=== PATIENT | male | born 1950 | race Caucasian/White ===

== ENCOUNTER 2018-09-10 06:02 | Inpatient (IN) ==
--- NOTE | 2018-08-13 13:21 | PAT Medication Instructions ---
Medication Instructions Date of Service August 13, 2018 Home Medications aspirin [Aspirin Low Dose] 81 mg PO QPM cinnamon bark [Cinnamon] 1,000 mg PO QAM flaxseed oil 1,000 mg PO QAM garlic 2,000 mg PO QAM ginkgo biloba 120 mg PO QAM lisinopril-hydrochlorothiazide 1 tab PO QAM loratadine 10 mg PO DAILY NEEDED multivitamin 1 tab PO QAM naproxen sodium [Aleve] 1 - 2 tab PO DAILY NEEDED turmeric 1 tab PO QAM diphenhydramine HCl [Benadryl] 25 mg PO HS NEEDED ASK your surgeon for instructions aspirin [Aspirin Low Dose] 81 mg PO QPM naproxen sodium [Aleve] 1 - 2 tab PO DAILY NEEDED STOP taking 2 weeks before surgery cinnamon bark [Cinnamon] 1,000 mg PO QAM flaxseed oil 1,000 mg PO QAM garlic 2,000 mg PO QAM ginkgo biloba 120 mg PO QAM turmeric 1 tab PO QAM DO NOT take the morning of surgery lisinopril-hydrochlorothiazide 1 tab PO QAM loratadine 10 mg PO DAILY NEEDED multivitamin 1 tab PO QAM Take morning of surgery NOTHING TO EAT OR DRINK AFTER MIDNIGHT Take evening before surgery diphenhydramine HCl [Benadryl] 25 mg PO HS NEEDED Other Notes If you have any questions please call us at [phone] or [phone] or [phone] or [phone]
--- NOTE | 2018-08-13 15:47 | Anesthesiology Consultation ---
Date of Service August 13, 2018 Assessment & Plan (1) Encounter for pre-operative examination: Chart Review Chart Review: Acceptable Risk for Surgery and Patient seen in Pre Admission Testing Consults Requested medical (Dr. Vasquez (09/03/18)) Patient was seen by PCP on 09/03/18, who stated that patient is "Medically stable to proceed with proposed surgical intervention with known associated comorbidities that currently have maximized control." Teaching & Discussion Pre-Anesthesia Teaching/Discussion Notes: Instructed NPO after midnight before surgery, except medications with 15 cc of water. Medication instructions provided according to the PAT guidelines. History Surgery Operation Date: 09/10/18 08:30 Proposed Procedures p Left Total Knee Revision - Raheem Kulkarni DO Height/Weight Height: 5 ft 8 in Weight: 96.9 kg Allergies Allergy/AdvReac Type Severity Reaction Status Date / Time No Known Allergies Allergy Verified 08/07/18 09:28 Medications Home Medications Medication Instructions Recorded Confirmed Last Taken aspirin [Aspirin Low Dose] 81 mg PO QPM 08/07/18 08/07/18 Unknown cinnamon bark [Cinnamon] 1,000 mg PO QAM 08/07/18 08/07/18 Unknown flaxseed oil 1,000 mg PO QAM 08/07/18 08/07/18 Unknown garlic 2,000 mg PO QAM 08/07/18 08/07/18 Unknown ginkgo biloba 120 mg PO QAM 08/07/18 08/07/18 Unknown lisinopril-hydrochlorothiazide 1 tab PO QAM 08/07/18 08/07/18 Unknown loratadine 10 mg PO DAILY PRN 08/07/18 08/07/18 Unknown multivitamin 1 tab PO QAM 08/07/18 08/07/18 Unknown naproxen sodium [Aleve] 1 - 2 tab PO DAILY PRN 08/07/18 08/07/18 Unknown turmeric 1 tab PO QAM 08/07/18 08/07/18 Unknown diphenhydramine HCl [Benadryl] 25 mg PO HS PRN 08/13/18 08/13/18 Unknown Past Medical History Medical History Environmental allergies GERD (gastroesophageal reflux disease) Hx of eczema Hx of skin cancer, 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 Hypertension Osteoarthritis Seasonal allergies Past Family History Family History Brother Family history of diabetes mellitus FHx: cancer Sister Family history of diabetes mellitus FHx: cancer Past Surgical History Surgical History History of arthroscopic knee surgery left Hx of colonoscopy Hx of total knee replacement left Hx of wisdom tooth extraction Past Anesthesia History No Hx of Anesthesia Complications and No Family Hx of Anesthesia Complications History of PONV No (ONLY WHEN HE SWALLOWED BLOOD DURING WISDOM TEETH SURGERY) Motion Sickness Screening History of Motion Sickness: No Social History Smoking Status: Never smoker Do You Dip or Chew Tobacco: No Hx Alcohol Use: No Hx Substance Use: No Exercise / Class Metabolic Activity II 4-5 Yardwork/Stairs/Walk up hill (Remodeling house. Able to climb FOS. Denies CP or SOB. ) Review of Systems Patient denies chest pain, shortness of breath, dyspnea on exertion, cough, wheezing, palpitations. +joint pain +acid reflux (controlled by diet) Physical Exam Vital Signs BP: 148/87 P: 116 R: 14 T: 98.7 SPO2: 96% on RA ENMT Thyromental Distance: > or= 3.5 Finger Breadths (3.5) Mallampati Class: II Partial on the top Neck normal visual inspection and trachea midline; neck extension not limited Respiratory normal respiratory effort Auscultation: lungs clear to auscultation bilaterally Cardiovascular Rate/Rhythm: regular rate and regular rhythm Heart Sounds: no murmur Vessels: no carotid bruit Psychiatric Orientation: alert and oriented x 3 Testing Electrocardiogram Date: 08/13/18 Findings: + ST @ (105) Chest X-Ray Date: 08/13/18 Findings: + NAD FINDINGS: No focal lung consolidations. The heart is normal in size. No pleural effusions. No pneumothorax. Mild smooth focal pleural thickening within the left lung apex. This is likely benign. Calcified granuloma within the right midlung zone. IMPRESSION: No acute process. Stress Test Date: 03/24/16 Type: exercise HR 140 (89% MPHR). Patient reported some dyspnea, denied chest pain. Resting ECG shows sinus rhythm and is unremarkable. Developed no ischemic ST-T abnormalities or arrhythmias with stress. HTN at rest, with stress, and during recovery. Fair exercise tolerance for the patient's age and given a prior history of knee replacement. Pulmonary Function Test Date: 03/24/16 Normal Spirometry. No significant expiratory airflow obstruction. No significant change in airflow following inhaled bronchodilator. Maximum voluntary ventilation is normal. No evidence of restrictive pulmonary process. The flow volume loop has a normal configuration. Laboratory Results 08/13/18 16:14 08/13/18 16:14 Blood Type O Positive 08/13/18 16:14 Antibody Screen NEGATIVE 08/13/18 16:14 PT 10.0 Seconds (9.0-12.0) 08/13/18 16:14 INR 1.0 (0.9-1.1) 08/13/18 16:14 APTT 26.6 Seconds (21.0-31.0) 08/13/18 16:14 Hemoglobin A1c 6.5 % (4.5-5.6) H 08/13/18 16:14
[2018-08-13 16:57] LABS: Basophils # (auto) 0.04 K/uL (0-0.2); Basophils % (auto) 0.5 %; Eosinophils # (auto) 0.25 K/uL (0-0.5); Eosinophils % (auto) 3.3 %; Hematocrit (blood only) 45.2 % (42-52); Hemoglobin 15.8 g/dL (14.0-18.0); Immature Granulocytes # (auto) 0.01 K/uL (0.00-0.02); Immature Granulocytes % (auto) 0.1 %; Lymphocytes # (auto) 2.38 K/uL (1.2-3.4); Lymphocytes % (auto) 31.3 %; Mean Corpuscular Volume 91.1 fL (80-100); Mean Platelet Volume 11.1 fL (7.4-10.4); Monocytes # (auto) 0.65 K/uL (0.11-0.59); Monocytes % (auto) 8.5 %; Neutrophils # (auto) 4.28 K/uL (1.4-6.5); Neutrophils % (auto) 56.3 %; Platelet Count 257 K/uL (130-400); RDW Coefficient of Variation 12.9 % (11.5-14.5); Red Blood Count 4.96 M/uL (4.7-6.1); White Blood Count 7.61 K/uL (4.8-10.8)
[2018-08-13 17:06] LABS: Albumin Level 4.1 gm/dl (3.4-5.0); BUN Creatinine Ratio 16.5 (10-20); Calcium 9.3 mg/dl (8.5-10.1); Creatinine Clr Calc Pharmacy 79.9 ml/min; Est GFR (African American) 86.9; Potassium 4.2 mmol/L (3.5-5.1)
[2018-08-13 17:08] LABS: Partial Thromboplastin Time 26.6 Seconds (21.0-31.0)
--- NOTE | 2018-08-13 17:14 | XRay Report ---
XR chest Pre-admission PA/Lat HISTORY: Preop. COMPARISON: None. FINDINGS: No focal lung consolidations. The heart is normal in size. No pleural effusions. No pneumot horax. Mild smooth focal pleural thickening within the left lung apex. This is likely benign. Calcifi ed granuloma within the right midlung zone. IMPRESSION: No acute process. Electronically signed by: Alexis Still M.D. 08/13/2018 5:13 PM
[2018-08-14 05:56] LABS: Estimated Average Glucose 140 mg/dl
--- NOTE | 2018-09-08 22:23 | History & Physical Report ---
Date of Service September 08, 2018 Assessment & Plan (1) Failed total knee arthroplasty: I have indicated the patient for revision left total knee replacement, possible augments, possible Crohn's. The risks, benefits and complications of surgery were explained to the patient which include but not limited to infection , acute blood loss, DVT/PE, injury to nerves, vessels, bone, soft tissue, arthrofibrosis, chronic pain, failure of the prosthesis, knee dislocation, leg length discrepancy, need for additional surgery, cardiac and pulmonary events and . The patient wished to proceed with surgery and informed consent was obtained at this time. We will plan for ASA BID post-operatively for DVT prophylaxis. Upon discharge the patient will be discharged home with home health services. Appropriate clearances by PCP were obtained. History of Present Illness Chief Complaint: Left painful TKA Primary Care Provider: Derik Vasquez The patient is a 67 year old male who presents with complaints of persistent painful left TKA. The patient had positive findings on XR and bone scan suggesting loosing of his femoral and tibial components with significant bone loss medially. The patient's pain and limited function have progressed to the point where they severely hinder their activities of daily living and they no longer tolerate exercise programs. They are requesting to proceed with revision total knee replacement surgery. Allergies Allergy/AdvReac Type Severity Reaction Status Date / Time No Known Allergies Allergy Verified 09/10/18 06:40 Home Medications Home Medications Medication Instructions Recorded Confirmed Type aspirin [Aspirin Low Dose] 81 mg PO QPM 08/07/18 09/10/18 History cinnamon bark [Cinnamon] 1,000 mg PO QAM 08/07/18 09/10/18 History flaxseed oil 1,000 mg PO QAM 08/07/18 09/10/18 History garlic 2,000 mg PO QAM 08/07/18 09/10/18 History ginkgo biloba 120 mg PO QAM 08/07/18 09/10/18 History lisinopril-hydrochlorothiazide 1 tab PO BID 08/07/18 09/10/18 History loratadine 10 mg PO DAILY PRN 08/07/18 09/10/18 History multivitamin 1 tab PO QAM 08/07/18 09/10/18 History naproxen sodium [Aleve] 1 - 2 tab PO DAILY PRN 08/07/18 09/10/18 History turmeric 1 tab PO QAM 08/07/18 09/10/18 History diphenhydramine HCl [Benadryl] 25 mg PO HS PRN 08/13/18 08/13/18 History dextromethorphan-guaifenesin 2 tab PO Q12H PRN 09/10/18 09/10/18 History [Mucinex DM] ibuprofen 200 mg PO QID PRN 09/10/18 09/10/18 History Past Med/Surg History Medical History Environmental allergies GERD (gastroesophageal reflux disease) Hx of eczema Hx of skin cancer, 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 Hypertension Osteoarthritis Seasonal allergies Surgical History History of arthroscopic knee surgery left Hx of colonoscopy Hx of total knee replacement left Hx of wisdom tooth extraction Family History Brother Family history of diabetes mellitus FHx: cancer Sister Family history of diabetes mellitus FHx: cancer Social History Current Living Situation: Spouse Other Information That Helps Us Care for You: No Feels Safe at Home: Yes Safety Concerns: Feels Safe At This Time Smoking Status: Never smoker Do You Dip or Chew Tobacco: No Hx Alcohol Use: No Hx Substance Use: No Beliefs That Will Affect Care: None Preferred Language: [place] Communication Ability: Effective Review of Systems All systems reviewed & are unremarkable except as noted in HPI & below Physical Exam 2 Physical Exam: LLE NVSI +EHL/FHL/TA/GS SILT grossly, +2 DP pulse, compartments soft NT, painful limited ROM of the left knee, 0-85 degrees of flexion. Constitutional: WD/WN, vitals as above Eyes: PERRL, conjunctivae normal, anicteric sclerae ENMT: external ear and nose normal, oropharynx normal Neck: trachea midline, no thyromegaly Respiratory: normal respiratory effort, lungs clear to auscultation Cardiovascular: RRR, no murmur, no edema Gastrointestinal (Abdomen): normal bowel sounds, soft, nontender, no hepatosplenomegaly Musculoskeletal: no cyanosis or clubbing, extremities motor strength 5/5 Skin: no rashes, warm and dry Neurologic: patellar DTR's 2+ bilat, sensation intact Psychiatric: A+Ox3, euthymic affect Lymphatic: no cervical or axillary lymphadenopathy Results & Data Diagnostic Findings XR left knee demonstrates total knee prosthesis with significant osteolysis of the tibial component with medial collapse and bone loss. Bone scan + femur and tibial for loosening.
[~2018-09-10 06:02] MED LIST: ACETAMINOPHEN 500 MG TAB PO SCH; CEFAZOLIN 2000MG 2,000 MG/15 ML SYR IV SCH; CeleBREX 200 MG CAP PO SCH; FAMOTIDINE 20 MG TAB PO SCH; METOCLOPRAMIDE HCL 10 MG TABLET PO SCH; ROPIVACAINE 0.5% HCL/PF 150 MG, BUPIVACAINE 0.5% MPF 30 ML, EPINEPHrine 30MG/30ML (OR U... INFIL SCH; TRANEXAMIC ACID 1,000 MG **IV Pre-op IV SCH; dexAMETHasone 4 MG TAB PO SCH
[2018-09-10] MEDS ORDERED: ROPIVACAINE 0.5% 5 MG/ML 30 ML VIAL ONE (06:26)
[2018-09-10] MEDS ORDERED: BUPIVACAINE 0.5 % 5 MG/1 ML PF 10ML VIAL ONE (06:26)
[2018-09-10] MEDS ORDERED: TRANEXAMIC ACID 1,000 MG **IV Intra-op IV SCH (06:30)
[2018-09-10] MEDS ORDERED: MIDAZOLAM HCL 1 MG/ML 2ML VIAL ONE ×2 (06:37→12:05)
[2018-09-10] MEDS ORDERED: fentaNYL citrate 100 MCG/2 ML VIAL ONE ×2 (06:37→13:04)
[2018-09-10] MEDS: LR 500ML BOLUS, THEN 15ML/HR IV SCH ×4 (06:53→19:16)
--- NOTE | 2018-09-10 06:59 | History & Physical Bridge Note ---
Date of Service September 10, 2018 History & Physical Bridge Note I have examined the patient, reviewed the History & Physical and in the interval since the performance of the History & Physical I have noted the following changes of clinical significance: no changes noted
[2018-09-10] MEDS ORDERED: POVIDONE-IODINE OP SOLN 30 ML BTL ONE (07:13)
[2018-09-10] MEDS ORDERED: BACITRACIN INJ 50,000 UNIT VIAL ONE (07:13)
[2018-09-10] MEDS ORDERED: ORTHO JOINT ANESTHETIC ONE (07:13)
[2018-09-10] MEDS ORDERED: ATROPINE SULFATE 0.1 MG/ML 10ML SYR IV PRN (08:07)
[2018-09-10] MEDS ORDERED: ONDANSETRON INJ 2 MG/ML 2 ML VIAL IV PRN ×2 (08:07→16:12)
[2018-09-10] MEDS ORDERED: fentaNYL citrate 100 MCG/2 ML VIAL IV PRN (08:07)
[2018-09-10] MEDS ORDERED: ePHEDrine sulfate 50 MG/ML AMP IV PRN (08:07)
[2018-09-10] MEDS ORDERED: METOPROLOL TARTRATE 1 MG/ML VIAL IV ONE (10:06)
[2018-09-10] MEDS ORDERED: PROPOFOL IV EMULSION 10 MG/ML 20 ML VIAL IV ONE ×4 (10:12→13:25)
[2018-09-10] MEDS ORDERED: PHENYLEPHRINE HCL 10 MG/ML VIAL ONE (11:38)
--- NOTE | 2018-09-10 13:47 | Post Operative Brief Note ---
Immediate Post Op Note v1 Date of Surgery September 10, 2018 Pre & Post Diagnosis Operation Date: 09/10/18 08:30 Pre-Op Diagnosis: LEFT KNEE PAIN D/T INTERNAL ORTHOPEDIC PROSTHETIC Post-Op Diagnosis: LEFT KNEE PAIN D/T INTERNAL ORTHOPEDIC PROSTHETIC Procedure Operation Date: 09/10/18 08:30 Actual Procedures p Left Total Knee Revision(Left) - Raheem Kulkarni DO Surgeon Raheem Kulkarni DO Sports Medicine Coordinator Alex Reyes Estimated Blood Loss 175 Findings Consistent with Post-Op Diagnosis Fluids 1500 Specimens cultures x 2 deep bone tibia, bone femur, explant femur, poly, tibia Drains Teresa Catheter and Hemovac Drain Anesthesia Type Spinal Complications none Disposition Disposition: Recovery Room Overlapping Procedure I was present for: the critical portions of procedure. I was immediately available: during the entire case. Back up surgeon: was not required during procedure.
--- NOTE | 2018-09-10 14:50 | Anesthesiology Progress Note ---
Date of Service September 10, 2018 Anesthesia Post Procedure Vital Signs Vital Signs: Temp Pulse Pulse Pulse Resp BP BP 09/10/18 14:40 114 H 14 09/10/18 14:36 112 H 13 146/83 H 09/10/18 14:35 113 H 23 09/10/18 14:31 113 H 22 155/88 H 09/10/18 14:30 114 H 16 09/10/18 14:26 108 H 20 165/91 H 09/10/18 14:25 111 H 22 09/10/18 14:21 111 H 19 147/89 H 09/10/18 14:20 113 H 15 09/10/18 14:16 111 H 18 155/89 H 09/10/18 14:15 116 H 16 09/10/18 14:10 36.2 C L 110 H 110 H 17 135/92 135/92 09/10/18 06:55 36.6 C 105 H 20 BP Pulse Ox 09/10/18 14:40 98 09/10/18 14:36 100 09/10/18 14:35 99 09/10/18 14:31 98 09/10/18 14:30 99 09/10/18 14:26 100 09/10/18 14:25 100 09/10/18 14:21 100 09/10/18 14:20 100 09/10/18 14:16 100 09/10/18 14:15 100 09/10/18 14:10 100 09/10/18 06:55 177/97 H 97 Pain Intensity Left Knee: Pain Intensity: 0 Notes Mental Status: alert / awake / arousable Patient Amnestic to Procedure: Yes Nausea / Vomiting: adequately controlled Pain: adequately controlled Airway Patency, RR, SpO2: stable & adequate BP & HR: stable & adequate Hydration State: stable & adequate Neuraxial Anesthesia: was administered and sensory block is resolving Anesthetic Complications: no major complications apparent and Pt Satisfied with anesthetic care
--- NOTE | 2018-09-10 14:52 | XRay Report ---
ADDENDUM The lucency within the proximal medial tibia favors the normal bone-cement interface rather than a no ndisplaced fracture. This was discussed with an additional radiologist for confirmation. Electronically signed by: Alexis Still M.D. 09/10/2018 4:22 PM ORIGINAL REPORT XR knee LT 2V routine CLINICAL HISTORY: 67 years-old Male presenting with Surgical Post Op. TECHNIQUE: Frontal and crosstable lateral views of the left knee were obtained. COMPARISON: None. FINDINGS: Postsurgical changes of the constrained total left knee arthroplasty with extended diaphyseal stem co mponents. Radiolucency along the medial tibial plateau raises concern for nondisplaced fracture. This is only visible on the frontal view. No prosthetic malalignment. Patellar resurfacing noted. Surgica l drain in place. Expected intra-articular and soft tissue emphysema. Overlying skin hipolito. IMPRESSION: 1. Findings concerning for nondisplaced periprosthetic fracture of the medial tibial plateau. 2. Postsurgical changes of constrained total left knee arthroplasty with patellar resurfacing. The report will be called/faxed according to standard departmental protocol. Electronically signed by: Mando Lagunas M.D. 09/10/2018 2:50 PM
[2018-09-10] MEDS ORDERED: MoRPHine SULFATE 4 MG/ML 1 ML CARP\\VIAL IV PRN (16:12)
[2018-09-10] MEDS: LISINOPRIL/HCTZ 10/12.5MG TAB PO SCH ×2 (18:27→22:14)
[2018-09-10] MEDS: CEFAZOLIN 2000MG 2,000 MG/15 ML SYR IV SCH (19:13)
[2018-09-10] MEDS: SODIUM CHLORIDE 0.9% 1000ML 1,000 ML IV SCH (19:13)
[2018-09-10] MEDS: KETOROLAC TROMETHAMINE 15 MG/ML VIAL IV SCH (19:16)
--- NOTE | 2018-09-10 21:31 | Orthopedic Progress Note ---
Date of Service September 10, 2018 Assessment & Plan (1) Failed total knee arthroplasty: Status post revision left total knee arthroplasty, revision of surgical scar -Ancef x24 -DVT prophylaxis ASA twice daily -Weight-bear as tolerated left lower extremity -PT OT -Monitor drain output -A.m. labs -Postoperative x-ray demonstrates a well aligned well fixed orthopedic prosthesis without evidence of fracture, dislocation. -DC planning Subjective Post Operative Progress Note Patient seen sitting up in bed, comfortable, denies complaints, pain well controlled, no acute issues. Physical Exam 2 Vital Signs (Past 24 Hours): Last Vital Signs Temp 36.6 C 09/10/18 18:57 Pulse 114 H 09/10/18 18:57 Resp 18 09/10/18 18:57 BP 151/84 H 09/10/18 18:57 Pulse Ox 94 09/10/18 18:57 Physical Exam: LLE NVSI +EHL/FHL/TA/GS SILT grossly, +2 DP pulse, compartments soft NT, dressing cdi. Constitutional: WD/WN, vitals as above Eyes: PERRL, conjunctivae normal, anicteric sclerae ENMT: external ear and nose normal, oropharynx normal Neck: trachea midline, no thyromegaly Respiratory: normal respiratory effort, lungs clear to auscultation Cardiovascular: RRR, no murmur, no edema Gastrointestinal (Abdomen): normal bowel sounds, soft, nontender, no hepatosplenomegaly Musculoskeletal: no cyanosis or clubbing, extremities motor strength 5/5 Skin: no rashes, warm and dry Neurologic: patellar DTR's 2+ bilat, sensation intact Psychiatric: A+Ox3, euthymic affect Lymphatic: no cervical or axillary lymphadenopathy
[2018-09-10] MEDS: ACETAMINOPHEN 500 MG TAB PO SCH (22:09)
[2018-09-10] MEDS: SENNA 8.6 MG TAB PO SCH (22:10)
[2018-09-10] MEDS: OXYCODONE HCL IR 5 MG TAB (IMMEDIATE RELEASE) PO PRN (23:37)
[2018-09-11] MEDS: CEFAZOLIN 2000MG 2,000 MG/15 ML SYR IV SCH (02:42)
[2018-09-11] MEDS: KETOROLAC TROMETHAMINE 15 MG/ML VIAL IV SCH ×3 (02:42→13:51)
[2018-09-11] MEDS: ACETAMINOPHEN 500 MG TAB PO SCH ×3 (04:51→22:10)
[2018-09-11] MEDS: SODIUM CHLORIDE 0.9% 1000ML 1,000 ML IV SCH (04:59)
[2018-09-11] MEDS: OXYCODONE HCL IR 5 MG TAB (IMMEDIATE RELEASE) PO PRN ×3 (07:17→20:37)
[2018-09-11 08:26] LABS: Hematocrit (blood only) 35.5 % (42-52); Mean Corpuscular Hgb Conc 33.8 g/dL (32-36); Mean Corpuscular Volume 91.5 fL (80-100); Mean Platelet Volume 11.5 fL (7.4-10.4); Platelet Count 243 K/uL (130-400); RDW Coefficient of Variation 13.3 % (11.5-14.5); RDW Standard Deviation 44.5 fL (36.4-46.3); Red Blood Count 3.88 M/uL (4.7-6.1); White Blood Count 15.25 K/uL (4.8-10.8)
--- NOTE | 2018-09-11 08:43 | Anesthesiology Progress Note ---
Date of Service September 11, 2018 Anesthesia Post Procedure Vital Signs Vital Signs: Temp Pulse Pulse Pulse Resp BP BP 09/11/18 07:06 36.4 C L 101 H 18 144/79 H 09/11/18 03:05 36.5 C 104 H 18 135/75 09/10/18 23:20 36.9 C 111 H 18 143/83 H 09/10/18 18:57 36.6 C 114 H 18 151/84 H 09/10/18 17:46 36.6 C 121 H 18 161/96 H 09/10/18 16:50 120 H 18 168/97 H 09/10/18 16:25 120 H 18 153/95 H 09/10/18 15:50 36.7 C 120 H 18 159/90 H 09/10/18 15:41 117 H 20 133/85 09/10/18 15:40 115 H 16 09/10/18 15:36 116 H 16 141/87 H 09/10/18 15:35 114 H 20 09/10/18 15:31 116 H 19 146/89 H 09/10/18 15:30 113 H 16 09/10/18 15:26 117 H 21 148/92 H 09/10/18 15:25 37.2 C 115 H 24 09/10/18 15:23 118 H 23 147/95 H 09/10/18 15:21 119 H 20 149/100 H 09/10/18 15:20 113 H 26 H 09/10/18 15:16 115 H 20 115/95 09/10/18 15:15 113 H 20 09/10/18 15:11 117 H 29 H 146/96 H 09/10/18 15:10 117 H 24 09/10/18 15:06 112 H 22 157/95 H 09/10/18 15:05 115 H 20 09/10/18 15:01 112 H 21 122/78 09/10/18 15:00 112 H 15 09/10/18 14:56 110 H 13 154/87 H 09/10/18 14:55 109 H 13 09/10/18 14:51 109 H 19 162/85 H 09/10/18 14:50 115 H 20 09/10/18 14:46 112 H 26 H 147/88 H 09/10/18 14:45 114 H 21 09/10/18 14:41 112 H 23 146/88 H 09/10/18 14:40 114 H 14 09/10/18 14:36 112 H 13 146/83 H 09/10/18 14:35 113 H 23 09/10/18 14:31 113 H 22 155/88 H 09/10/18 14:30 114 H 16 09/10/18 14:26 108 H 20 165/91 H 09/10/18 14:25 111 H 22 09/10/18 14:21 111 H 19 147/89 H 09/10/18 14:20 113 H 15 09/10/18 14:16 111 H 18 155/89 H 09/10/18 14:15 116 H 16 09/10/18 14:10 36.2 C L 110 H 110 H 17 135/92 135/92 Pulse Ox 09/11/18 07:06 98 09/11/18 03:05 94 09/10/18 23:20 93 09/10/18 18:57 94 09/10/18 17:46 93 09/10/18 16:50 96 09/10/18 16:25 95 09/10/18 15:50 96 09/10/18 15:41 98 09/10/18 15:40 100 09/10/18 15:36 99 09/10/18 15:35 99 09/10/18 15:31 99 09/10/18 15:30 99 09/10/18 15:26 99 09/10/18 15:25 99 09/10/18 15:23 99 09/10/18 15:21 99 09/10/18 15:20 100 09/10/18 15:16 98 09/10/18 15:15 99 09/10/18 15:11 99 09/10/18 15:10 100 09/10/18 15:06 100 09/10/18 15:05 96 09/10/18 15:01 99 09/10/18 15:00 99 09/10/18 14:56 100 09/10/18 14:55 100 09/10/18 14:51 98 09/10/18 14:50 99 09/10/18 14:46 98 09/10/18 14:45 99 09/10/18 14:41 98 09/10/18 14:40 98 09/10/18 14:36 100 09/10/18 14:35 99 09/10/18 14:31 98 09/10/18 14:30 99 09/10/18 14:26 100 09/10/18 14:25 100 09/10/18 14:21 100 09/10/18 14:20 100 09/10/18 14:16 100 09/10/18 14:15 100 09/10/18 14:10 100 Pain Intensity Left Knee: Pain Intensity: 4 Notes Mental Status: alert / awake / arousable Patient Amnestic to Procedure: Yes Nausea / Vomiting: adequately controlled Pain: adequately controlled Airway Patency, RR, SpO2: stable & adequate BP & HR: stable & adequate Hydration State: stable & adequate Anesthetic Complications: no major complications apparent
--- NOTE | 2018-09-11 08:50 | Orthopedic Progress Note ---
Date of Service September 11, 2018 Assessment & Plan (1) Failed total knee arthroplasty: Status post revision left total knee arthroplasty, revision of surgical scar POD#1 -Ancef x24 -DVT prophylaxis ASA twice daily -Weight-bear as tolerated left lower extremity -PT OT -Monitor drain output - 150cc/shift -A.m. labs hgb 12.0, BMP pending -Postoperative x-ray demonstrates a well aligned well fixed orthopedic prosthesis without evidence of fracture, dislocation. -DC planning - home with HH Subjective Post Operative Progress Note Patient seen sitting up in bed, comfortable, denies complaints, pain well controlled, no acute issues. Physical Exam 2 Vital Signs (Past 24 Hours): Last Vital Signs Temp 36.4 C L 09/11/18 07:06 Pulse 101 H 09/11/18 07:06 Resp 18 09/11/18 07:06 BP 144/79 H 09/11/18 07:06 Pulse Ox 98 09/11/18 07:06 Physical Exam: LLE NVSI +EHL/FHL/TA/GS SILT grossly, +2 DP pulse, compartments soft NT, dressing cdi. HMV drain intact. Constitutional: WD/WN, vitals as above
[2018-09-11 08:56] LABS: BUN Creatinine Ratio 20.8 (10-20); Calcium 8.5 mg/dl (8.5-10.1); Creatinine Clr Calc Pharmacy 63.5 ml/min; Est GFR (African American) 65.2; Est GFR (Non-African American) 56.2; Potassium 4.3 mmol/L (3.5-5.1)
[2018-09-11] MEDS: MULTIVITAMIN TAB PO SCH (09:24)
[2018-09-11] MEDS: PANTOprazole 40 MG TAB PO SCH (09:24)
[2018-09-11] MEDS: LISINOPRIL/HCTZ 10/12.5MG TAB PO SCH ×2 (09:24→20:30)
[2018-09-11] MEDS: CeleBREX 200 MG CAP PO SCH (20:29)
[2018-09-11] MEDS: SENNA 8.6 MG TAB PO SCH (20:31)
[2018-09-11] MEDS: ASPIRIN 325 MG ECTAB PO SCH (21:30)
[2018-09-12] MEDS: OXYCODONE HCL IR 5 MG TAB (IMMEDIATE RELEASE) PO PRN ×4 (00:48→13:58)
[2018-09-12] MEDS: ACETAMINOPHEN 500 MG TAB PO SCH ×2 (05:33→13:31)
[2018-09-12] MEDS: ASPIRIN 325 MG ECTAB PO SCH (08:37)
[2018-09-12] MEDS: LISINOPRIL/HCTZ 10/12.5MG TAB PO SCH (08:37)
--- NOTE | 2018-09-12 09:08 | Orthopedic Progress Note ---
Date of Service September 12, 2018 Assessment & Plan (1) Failed total knee arthroplasty: Status post revision left total knee arthroplasty, revision of surgical scar POD#2 -Ancef x24 -DVT prophylaxis ASA twice daily -Weight-bear as tolerated left lower extremity -PT OT -HMV drain DC'd -A.m. labs hgb/hct pending -Postoperative x-ray demonstrates a well aligned well fixed orthopedic prosthesis without evidence of fracture, dislocation. -DC planning - home with HH today Subjective Post Operative Progress Note Patient seen sitting up in bed, comfortable, denies complaints, pain well controlled, no acute issues. Physical Exam 2 Vital Signs (Past 24 Hours): Last Vital Signs Temp 36.4 C L 09/12/18 07:59 Pulse 68 09/12/18 07:59 Resp 16 09/12/18 07:59 BP 128/80 09/12/18 07:59 Pulse Ox 97 09/12/18 07:59 Physical Exam: LLE NVSI +EHL/FHL/TA/GS SILT grossly, +2 DP pulse, compartments soft NT, dressing cdi. Constitutional: WD/WN, vitals as above
[2018-09-12] MEDS: PANTOprazole 40 MG TAB PO SCH (09:58)
[2018-09-12] MEDS: MULTIVITAMIN TAB PO SCH (09:58)
[2018-09-12] MEDS: CeleBREX 200 MG CAP PO SCH (09:59)
--- NOTE | 2018-09-12 10:07 | Operative Report ---
Post Operative Report Pre & Post Diagnosis Operation Date: 09/10/18 08:30 Pre-Op Diagnosis: LEFT KNEE PAIN D/T INTERNAL ORTHOPEDIC PROSTHETIC Post-Op Diagnosis: LEFT KNEE PAIN D/T INTERNAL ORTHOPEDIC PROSTHETIC Procedure Operation Date: 09/10/18 08:30 Actual Procedures p Left Total Knee Revision(Left) - Raheem Kulkarni DO Surgeon Raheem Kulkarni DO Hide And Skin Processing Worker Alex Reyes Estimated Blood Loss 175 Findings Consistent with Post-Op Diagnosis Specimens components, tibia, poly, femur Drains HMV x 2, deep to fascia Anesthesia Type Spinal Complications none Disposition Disposition: Recovery Room Indications The patient is a 67 year old male who presents with complaints of persistent painful left TKA. The patient had positive findings on XR and bone scan suggesting loosing of his femoral and tibial components with significant bone loss medial tibal plateau. The patient's pain and limited function have progressed to the point where they severely hinder their activities of daily living and they no longer tolerate exercise programs. They are requesting to proceed with revision total knee replacement surgery. Preoperative testing negative for infection. I have indicated the patient for revision left total knee replacement, possible augments, possible cones. The risks, benefits and complications of surgery were explained to the patient which include but not limited to infection, acute blood loss, DVT/PE, injury to nerves, vessels, bone, soft tissue, arthrofibrosis , chronic pain, failure of the prosthesis, knee dislocation, leg length discrepancy, need for additional surgery, cardiac and pulmonary events and . The patient wished to proceed with surgery and informed consent was obtained at this time. We will plan for ASA BID post-operatively for DVT prophylaxis. Upon discharge the patient will be discharged home with home health services. Appropriate clearances by PCP were obtained. Description of Procedure Following induction of spinal anesthesia, a tourniquet was applied to the proximal aspect of the thigh and the patient's left leg was prepped and draped in the usual sterile manner. A timeout was performed and site hola verified. Limb was exsanguinated with an esmarch bandage and tourniquet was inflated to 300 mmHg. The prior incision was identified and a longitudinal midline incision was made. Previous surgical scar was excised. Subcutaneous tissue was sharply dissected down to fascia. Electrocautery was used for hemostasis. Next a medial parapatellar arthrotomy was performed. A culture of synovial fluid x 2 was obtained. Meticulous removal of hypertrophic synovium and scar tissue was removed with Bovie. The patella was subluxed laterally and the knee was flexed. A angela retractor was used to expose the synovium above on the anterior aspect of the femur and removed down to bone. Next, the anterior fat pad was removed to aid in visualization. The medial face of the tibia was cleared of soft tissue first with a bovie and a martinez elevator. This tissue was retracted posteriorly using a blunt hohmann. Once adequate access was obtained to the total knee prosthesis we removed the tibial articular surface. Next we turned our attention to the femoral component which was grossly loose and easily removed with straight osteotomes. Backslapping distal femur extraction instrument was utilized to remove the distal femur, there was minimal bone loss. Meticulous removal of residual cement from the bone was performed. Next we turned our attention to the proximal tibia which was grossly loose. The tibial plate edge was cleared of brandon overgrowth and debris. Utilizing to flat wide osteotomes we were able to lever the component out of the bone. Once again there was minimal bone loss with removal of the component. Next we meticulously removed remaining cement and cleared the distal femur proximal tibia and any remaining soft tissue. We appreciated significant bone loss of the proximal tibia where the tibial component had subsided. We gained access to both the intramedullary tibia and femur and intramedullary membrane was scraped with curved curettes. Next sequential intramedullary reaming was performed by hand on both the tibia and the femur until adequate bone chatter was appreciated. Reaming was stopped at 17 mm on the tibia and 18 mm on the femur. At this time the tourniquet was dropped at 44 minutes. The intramedullary reamer was left in the tibia and the T-handle was removed. The proximal tibia cutting guide was attached to the reamer and pinned in place. Intramedullary reamer was removed and the proximal tibia was cut at the level of the defect left from the tibial component, removing minimal bone until there was a flat cut perpendicular to the mechanical axis. We confirmed the cut with drop walter and spacer block. Next the proximal tibia was assessed and two bent Hohmanns were placed medial and lateral to aid in visualization. The appropriate tibia size and rotation was selected and a size 4 tibial plate was pinned into place with appropriate rotation. Preparation of the tibia was completed utilizing the matching tibial drill and broach. The trial tibial plate was removed and the trial size 4 tibia with 4.5 offset [id number] fluted stem with 10mm augments attached to the proximal tibia and impacted into place. This provided good fit and fill of the proximal tibia. Next we turned our attention to the distal femur. The appropriate provisional trial femur size F was attached and pinned with gold pins through the anterior pin holes. 5mm augment cuts were made with reciprocal saw distal medial and posterior medial femur. The flexion gap was assessed at this time. The provisional trial femur was removed, gold pins placed through previously made holes and 4 in 1 box cut guide attached. Once appropriate medial and lateral translation was determined, the 4 in 1 box cutting guide was pinned into place and gold pins removed. Anterior, posterior, anterior chamfer and posterior chamfer cuts were mad followed by box cut utilizing a reciprocal saw. The box cut guide and bone fragments were removed and the final trial size F femur with 4.5 offset [id number] fluted stem with 5mm distal medial and posterior medial augments was inserted. A 14mm PS tibial articular surface was trialed. Sequential trialing of tibial sizes was performed, increasing to a tibial articular surface size 20 mm. Varus-valgus balance was assessed in 0 degrees of extension and 30, 60 and 90 degrees of flexion. A final tibial articular surface size 20 LCCK was chosen. Access was gained to the patella and meticulous removal of fibrous soft tissue surrounding the patella button was removed. The patella was cleared of any remaining osteophytes utilizing the rongour. The patella button was found to be stable and well fixed without signs of wear. The knee was found to be well balanced, well aligned, with excellent patellar tracking. The leg was rewrapped with Esmarch and tourniquet inflated once again at this time. The trials were removed and final components were obtained and assembled on the back table. Aquamantys was utilized for any bleeders and Orthomix solution injected into the posterior capsule. The knee was irrigated with copious amounts of sterile saline solution mixed with bacitracin. Access to the proximal tibia was once again obtained utilizing two bent hohmann retractors and the proximal tibia and distal femur were dried with lap sponges. The final components were cemented into place utilizing Palacos cement and all excess cement was removed. A trial tibial articular surface was placed while cemented hardened. Knee stability was once again assessed and the final tibial articular component inserted. The knee was injected with the remaining Orthomix solution and irrigated once more with sterile saline solution mixed with bacitracin. Hemovac drains 2 were inserted deep to the capsule. The capsulotomy was closed with #2 fiberwire and #1 Vicryl followed by subcutaneous closure with 2-0 Vicryl suture. Skin closure was performed using hipolito, sterile dressings were applied which included Prevena incisional vacuum system, webrill, drain sponge and krissy wrap. The patient was awoken in the OR and transported to the PACU in stable condition. Due to the complex nature of the procedure, the entire surgery was performed with the operational assistance of Alex Reyes PA-C. The administrative services assistant, under direct supervision, was involved in the actual performance of all aspects of the surgical procedure including patient positioning, hemostasis, tissue retraction, instrument management and wound closure. I attest to the content of the Intraoperative Record and any orders documented therein. Any exceptions are noted below.
[2018-09-12 10:28] LABS: Hematocrit (blood only) 33.3 % (42-52); Hemoglobin 11.1 g/dL (14.0-18.0)
--- NOTE | 2018-09-12 14:35 | Discharge Summary ---
Date of Service September 12, 2018 Admission HPI Per Admitting Provider The patient is a 67 year old male who presents with complaints of persistent painful left TKA. The patient had positive findings on XR and bone scan suggesting loosing of his femoral and tibial components with significant bone loss medially. The patient's pain and limited function have progressed to the point where they severely hinder their activities of daily living and they no longer tolerate exercise programs. They are requesting to proceed with revision total knee replacement surgery. Principal Diagnosis Revision left total knee replacement Discharge Exam LLE NVSI +EHL/FHL/TA/GS SILT grossly, +2 DP pulse, compartments soft NT, dressing cdi. Constitutional WD/WN, vitals as above Eyes PERRL, conjunctivae normal, anicteric sclerae ENMT external ear and nose normal, oropharynx normal Neck trachea midline, no thyromegaly Respiratory normal respiratory effort, lungs clear to auscultation Cardiovascular RRR, no murmur, no edema Gastrointestinal (Abdomen) normal bowel sounds, soft, nontender, no hepatosplenomegaly Musculoskeletal no cyanosis or clubbing, extremities motor strength 5/5 Skin no rashes, warm and dry Neurologic patellar DTR's 2+ bilat, sensation intact Psychiatric A+Ox3, euthymic affect Lymphatic no cervical or axillary lymphadenopathy Discharge Data Allergies Allergy/AdvReac Type Severity Reaction Status Date / Time No Known Allergies Allergy Verified 09/10/18 06:40 Consultations 09/10/18 16:12 Consult Case Management - Discharge Planning Routine Procedures Performed Operation Date: 09/10/18 08:30 Actual Procedures p Left Total Knee Revision(Left) - Raheem Kulkarni DO Ordered Studies 09/10/18 05:00 US - OR guided needle placemen Routine Hospital Course (1) Failed total knee arthroplasty: The patient is a 67 -year-old male who presents with long standing history of left total knee pain who failed outpatient conservative treatments including NSAIDs, bracing, home walking/exercise program. Xrays and bone scan positive for aseptic loosening of the femoral and tibial components. Infectious process ruled out pre-operatively. The patient's symptoms have progressed to the point where it has been difficult to perform even normal activities of daily living. I indicated the patient for a revision left total knee arthroplasty, the risks, benefits and complications of the procedure include but not limited to infection , bleeding, damage to bone, nerves, vessels, surrounding soft tissue, may develop blood clots, loss of function, leg length discrepancy, dislocation, failure of the components, loosening of the components, the need for additional surgery and . The patient wished to proceed with surgery at this time and informed consent was obtained. Hospital Course: On 09/10/18 the patient was taken to the operating room, adequate anesthesia administered and underwent a revision left total knee arthroplasty. The patient tolerated the procedure well and was taken to the PACU in stable condition. Post-operatively the patient was started on a DVT ppx medication and given appropriate IV antibiotics. Consults were placed to physical therapy , occupational therapy and case management. On POD#1, the patient did well overnight and their pain was well controlled. Labs were drawn and the Hgb was 12.0. HMV output recorded as 150/shift. The patient progressed well with PT. On POD#2, The patient continued to progress with PT and pain well controlled. HMV output decreased to 25cc/shift and subsequently DC'd. Morning labs were drawn, H/H = 11.1/33.3%. The patients hospital stay was relatively uneventful and they were deemed stable by the orthopedic team and consultants to be discharged home on 09/12/18. Discharge Instructions: Upon discharge the patient may weight bear as tolerates through their operative extremity. They were instructed to keep the incision clean and dry at all times. The patient may shower but should not submerge the incision, avoid bathing, pools and hot tubes. The patient was given a script for pain medication and should take as instructed. The patient was given a script for DVT ppx ASA 325mg BID and should take as directed. The patient was instructed to not drive or travel for long distances until cleared to do so. If the patient develops any symptoms of fevers, chills, nausea, vomiting, increased redness, swelling, pain or drainage from the surgical site, they should notify the office and/or proceed to the nearest emergency room. The patient should follow up in 10-14 days after surgery for their routine post-operative follow- up appointment and should call the office to confirm the date and time. Status post revision left total knee arthroplasty, revision of surgical scar POD#2 -Ancef x24 -DVT prophylaxis ASA twice daily -Weight-bear as tolerated left lower extremity -PT OT -HMV drain DC'd -A.m. labs hgb/hct 11.1/33.3% -Postoperative x-ray demonstrates a well aligned well fixed orthopedic prosthesis without evidence of fracture, dislocation. -DC planning - home with HH today Total Time Total Time Spent Total Time Spent (In Minutes): >60 minutes Total Time Includes: Examination of the Patient, Discharge Planning, Medication Reconciliation and Communication With Other Providers Discharge Plan Discharge Items Patient Disposition: Home - Home Health Services Reason For Visit: LEFT KNEE PAIN D/T INTERNAL ORTHOPEDIC PROSTHETIC Discharge Diagnosis: Revision Left Total Knee Replacement Discharge Goals: Decrease discomfort, Diagnostic testing, Improve function and Increase independence Activity: Per 'Additional Instructions' section Lifting: Wait until after follow-up appointment Bathing Comment: No bathing, pools or hot tubs Sexual Activity: Wait until after follow-up appointment Exercise/Sports: Wait until after follow-up appointment Driving/Machine Use Comment: No driving till cleared by your surgeon Weightbearing: Left weightbearing Non-emergency contact: Primary Care Provider and Surgeon Call non-emergency contact if: you have any medication questions, your symptoms worsen, your pain is not controlled, your pain is worsening, your pain is unusual for you, your pain is concerning for you, you have a fever, your temperature is above 101, your wound has increased redness, your wound has increased drainage and your wound pain has increased Follow-up/Referrals: Derik Vasquez D.O. [Primary Care Provider] - Diet: Regular Addtl Provider Instructions: ACTIVITY RECOMMENDATIONS: SELF CARE INSTRUCTIONS AFTER TOTAL KNEE REPLACEMENT A. You may need to continue a physical therapy program after discharge from the hospital. There are several options available to you. Your doctor will assist you in selecting the best one for you. 1. An out-patient facility 2 to 3 times a week for therapy or home therapy. 2. Continue working on all exercises taught to you in the hospital. Your goals should be to increase bending of your knee to 90 degrees and beyond and to fully straighten your knee. B. You may progress at your own pace from walking with a walker or crutches to a cane; then to no assistive devices. C. Make walking a part of your daily routine. Be up as much as comfortable with rest periods throughout the day. Rest with leg elevation is very important. Use the ice wrap frequently for the first 3-4 weeks. D. There are no restrictions on activities. You may ride in a car, shop, participate in warehouse driver and all social activities. E. Wear the long elastic stockings (BUNNY hose) 20 hours a day for 2 weeks after surgery. They can be removed several times a day for laundering and for a bath. F. You may shower, no tub baths until cleared by your doctor. SPECIAL CARE INSTRUCTIONS: VERY IMPORTANT TO READ AND REVIEW A. There are a few signs you need to watch for after you are home. Call [facility] if you notice any of the followin. Increased severe knee pain. Some pain is expected especially when you exercise. 2. Increased swelling in your leg or knee; pain or swelling of the calf muscle in either lower leg. 3. Any fluid drainage from the incision. 4. Shortness of breath or chest pain. B. Please call [facility] at if you have any concerns or questions about your operation or recovery. The doctor or his nurse will return your call promptly. C. You must take antibiotics before dental work, bladder, bowel or other surgery. Your doctor will provide you with a permanent care to carry describing this precaution. IMPORTANT: * REMEMBER TO TAKE ASPIRIN, 325 MG, TWICE DAILY FOR 4 WEEKS UNLESS OTHERWISE DIRECTED. THIS IS YOUR BLOOD THINNER. * HIGH RISK PATIENTS MAY BE PRESCRIBED A STRONGER BLOOD THINNER. THIS WILL BE PROVIDED AT DISCHARGE. * CALL IF INCREASED PAIN, REDNESS, DRAINAGE OR FEVER GREATER THAT 101. * WEAR BUNNY HOSE 20 HOURS PER DAY FOR 2 WEEKS. * DERMABOND Prineo- This is a mesh tape dressing that is covered with glue. It should remain in place until the incision is properly healed, usually 10-14 days. This dressing is designed to naturally slough off. You may trim the excess mesh tape as it peels off. Incision may be briefly wet in a shower. Dry immediately by blotting with a clean, dry towel. Do not bath or swim until instructed by your doctor. Do not scratch, rub, or pick at the dressing. Do not apply any topical ointments or lotions until dressing is completely removed and/or instructed by your doctor. There may be a small piece of suture material at one end of your incision. Do not pull or trim this. If it is bothersome or catching on clothing, you may cover it with a band-aid. *Prevena incisional vac is a special dressing covering your incision. This dressing provides a sterile dry environment while you are healing. The dressing is to be left in place for 7 days post-operatively. Your home nurse or surgeon will remove. If you develop any redness or blisters or have any questions notify your surgeon immediately. *IF INCISION IS LEAKING THROUGH DRESSING, CALL THE OFFICE . FOLLOW UP VISIT: If appointment is not already scheduled: Please call [facility] to make a follow-up appointment for 2 weeks after your surgery at . Prescriptions: New acetaminophen [Pain Reliever] 500 mg Tablet 1,000 mg PO Q8 PRN (Reason: pain) Qty: 90 RF: 0 aspirin 325 mg Tablet,Delayed Release (Dr/Ec) 325 mg PO BID 28 Days Qty: 56 RF: 0 oxycodone 5 mg Tablet 5 mg PO Q6H PRN (Reason: pain) Qty: 30 RF: 0 sennosides [Senokot] 8.6 mg Tablet 17.2 mg PO HS PRN (Reason: constipation) Qty: 28 RF: 0 Continue multivitamin Tablet 1 tab PO QAM RF: 0 garlic 1,000 mg Capsule 2,000 mg PO QAM RF: 0 flaxseed oil 1,000 mg Capsule 1,000 mg PO QAM RF: 0 lisinopril-hydrochlorothiazide 10-12.5 mg Tablet 1 tab PO BID RF: 0 loratadine 10 mg Tablet 10 mg PO DAILY PRN (Reason: allergies) RF: 0 ginkgo biloba 120 mg Tablet 120 mg PO QAM RF: 0 cinnamon bark [Cinnamon] 500 mg Capsule 1,000 mg PO QAM RF: 0 turmeric 400 mg Capsule 1 tab PO QAM RF: 0 diphenhydramine HCl [Benadryl] 25 mg Capsule 25 mg PO HS PRN (Reason: Allergy Symptoms) RF: 0 dextromethorphan-guaifenesin [Mucinex DM] 30-600 mg Tablet Extended Release 12 Hr 2 tab PO Q12H PRN (Reason: Cold Symptoms) RF: 0 Discontinued aspirin [Aspirin Low Dose] 81 mg Tablet,Delayed Release (Dr/Ec) 81 mg PO QPM RF: 0 naproxen sodium [Aleve] 220 mg Tablet 1 - 2 tab PO DAILY PRN (Reason: Pain) RF: 0 ibuprofen 200 mg Tablet 200 mg PO QID PRN (Reason: Cold Symptoms) RF: 0 Stand-Alone Forms: [facility], Opioid Pain Management Discharge Orders: Discharge Order (Routine); Ordered 09/12/18 Ordered By: Raheem Kulkarni Admission Data Admit Date/Time: 09/10/18 14:50 Attending Provider: Raheem Kulkarni Admit Provider: Raheem Kulkarni Primary Care Provider: Derik Vasquez Service: Surgical Services Other Interventions: Discharge Summary Assessment (RN) Last Done: 09/12/18 11:02 DC Date/Time DO NOT enter until pt leaves facility: 09/12/18 14:21
== END 2018-09-12 14:21 | disposition home health service (06) | DRG 468 ==
LOC: ASU 06:02 → 3E 14:50